=== PATIENT | male | born 1960 | race Two or more races ===

== ENCOUNTER 2018-08-20 08:37 | Day surgery (SDC) | payer OTHER ==
[2018-08-15 12:40] VITALS: BMI 22.7
[2018-08-20 10:17] VITALS: PULSE 71
[2018-08-20 11:55] VITALS: BP 112/74; TEMP 98
--- NOTE | 2018-08-22 16:35 | PATH ---
Surgical Pathology Report Patient Name: DANIELLE QUINTEROS [facility]. Rec. #: [id number] /Age/Gender: 1960 (Age: 57) / M Account: [id number] Location: [facility] Taken: 08/20/2018 Received: 08/20/2018 Reported: 08/22/2018 Physicians: Hernan Lomax M.D. Specimen(s) Received A: RIGHT COLON B: LEFT COLON C: POLYP Clinical History History of polyps Postoperative diagnosis: Polyps Final Diagnosis A. RIGHT COLON, POLYP, BIOPSY: TUBULAR ADENOMA. B. LEFT COLON, POLYP, POLYPECTOMY: TUBULAR ADENOMA. C. SIGMOID COLON, POLYP, POLYPECTOMY: HYPERPLASTIC POLYP. Electronically Signed Cary Perez M.D. Gross Description A. Received in formalin, labeled "polyp right colon" are 3 green, irregular portions of soft tissue ranging from 0.1-0.4 cm. in greatest dimension. The specimens are submitted in toto in one cassette. B. Received in formalin, labeled "polyp left colon" is a green, irregular portion of soft tissue measuring 1.1 cm. in greatest dimension. The specimen is submitted in toto in one cassette. C. Received in formalin, labeled "polyp sigmoid colon" is a green, irregular portion of soft tissue measuring 0.3 cm. in greatest dimension. The specimen is submitted in toto in one cassette. 08/20/201808/20/2018
== END 2018-08-20 11:15 | disposition home or self-care (01) ==
LOC: FASU-ENDO 08:37
PROVIDERS: ATTEND Internal Medicine Gastroenterology
PROC: 0DBN8ZX Excision of Sigmoid Colon, Via Natural or Artificial Opening Endoscopic, Diagnostic (ICD-10-PCS; 2018-08-20)
PROC: 0DBK8ZX Excision of Ascending Colon, Via Natural or Artificial Opening Endoscopic, Diagnostic (ICD-10-PCS; 2018-08-20)
PROC: 0DBM8ZX Excision of Descending Colon, Via Natural or Artificial Opening Endoscopic, Diagnostic (ICD-10-PCS; principal; 2018-08-20 09:30)
DX: Z86.010 Personal history of colon polyps (principal); D12.2 Benign neoplasm of ascending colon; D12.4 Benign neoplasm of descending colon; K63.5 Polyp of colon
CPT/HCPCS: 88305-TC

== ENCOUNTER 2021-04-02 06:08 | Day surgery (SDC) | payer OTHER ==
[2021-03-29 16:15] VITALS: BMI 22.6
[2021-04-02] MEDS ORDERED: EPINEPHrine/PF 1 MG/1 ML (1:1,000) AMPULE ONE (07:06)
[2021-04-02] MEDS ORDERED: BUPIVACAINE HCL/PF 2.5 MG/ML - 30 ML VIAL IJ ONE ×3 (07:06→08:28)
[2021-04-02] MEDS ORDERED: ONDANSETRON 4 MG/2 ML VIAL ONE ×2 (07:28→08:51)
[2021-04-02] MEDS ORDERED: PROPOFOL 20 ML ONE ×3 (07:28)
[2021-04-02] MEDS ORDERED: LIDOCAINE HCL 2% JELLY (5 ML/TUBE) ONE (07:28)
[2021-04-02] MEDS ORDERED: SUCCINYLCHOLINE CHLORIDE 200 MG/10 ML SYRINGE ONE (07:28)
[2021-04-02] MEDS ORDERED: ceFAZolin SODIUM 1 GM VIAL ONE (07:28)
[2021-04-02] MEDS ORDERED: DEXAMETHASONE SOD PHOSPHATE 4 MG/1 ML VIAL ONE (07:28)
[2021-04-02] MEDS ORDERED: LIDOCAINE HCL/PF 2% SDV 5ML VIAL ONE (07:28)
[2021-04-02] MEDS ORDERED: KETOROLAC TROMETHAMINE 30 MG/1 ML VIAL ONE (07:28)
[2021-04-02] MEDS ORDERED: MIDAZOLAM HCL 2 MG/2 ML SINGLE DOSE VIAL ONE (07:29)
[2021-04-02] MEDS ORDERED: EPHEDRINE SULFATE/0.9% NACL/PF 50 MG/10 ML SYRINGE NR ONE (07:47)
[2021-04-02] MEDS ORDERED: ONDANSETRON 4 MG/2 ML VIAL IVPUSH PRN (08:41)
[2021-04-02] MEDS ORDERED: PROMETHAZINE HCL 25 MG/1 ML VIAL IVPB PRN (08:41)
[2021-04-02] MEDS ORDERED: oxyCODONE HCL 5 MG TABLET PO PRN ×2 (08:41)
[2021-04-02 09:01] VITALS: TEMP 98.7
[2021-04-02 14:07] VITALS: BP 127/80; PULSE 62
== END 2021-04-02 11:05 | disposition home or self-care (01) ==
LOC: FASU 06:08
PROVIDERS: ATTEND Orthopaedic Surgery
PROC: 0SBD4ZZ Excision of Left Knee Joint, Percutaneous Endoscopic Approach (ICD-10-PCS; principal; 2021-04-02 07:30)
DX: M23.222 Derangement of posterior horn of medial meniscus due to old tear or injury, left knee (principal)
CPT/HCPCS: 88304-TC; 94760

== ENCOUNTER 2021-05-10 14:34 | Emergency (ER) | payer OTHER ==
[2021-05-11 13:08] LABS: SARS-CoV-2 NAA Not Detected (Not Detected)
== END 2021-05-10 15:43 | disposition home or self-care (01) ==
LOC: JVIRT 14:34
DX: Z20.822 Contact with and (suspected) exposure to COVID-19 (principal)
CPT/HCPCS: C9803; Q3014-GT; U0003; U0005

== ENCOUNTER 2021-05-27 11:31 | Emergency (ER) | payer OTHER ==
[2021-05-28 16:08] LABS: SARS-CoV-2 NAA Not Detected (Not Detected)
== END 2021-05-27 11:52 | disposition home or self-care (01) ==
LOC: JVIRT 11:31
DX: Z20.822 Contact with and (suspected) exposure to COVID-19 (principal)
CPT/HCPCS: C9803; Q3014-GT; U0003; U0005

== ENCOUNTER 2023-01-19 08:36 | Day surgery (SDC) | payer OTHER ==
[2023-01-13 14:58] VITALS: BMI 23.0
[2023-01-19 09:36] VITALS: TEMP 98
[2023-01-19 09:56] VITALS: PULSE 70; RESP 18
[2023-01-19 09:57] VITALS: BP 112/62
== END 2023-01-19 10:33 | disposition home or self-care (01) ==
LOC: FASU-ENDO 08:36
PROVIDERS: ATTEND Internal Medicine Gastroenterology
PROC: 0DBL8ZX Excision of Transverse Colon, Via Natural or Artificial Opening Endoscopic, Diagnostic (ICD-10-PCS; 2023-01-19)
PROC: 0DBN8ZX Excision of Sigmoid Colon, Via Natural or Artificial Opening Endoscopic, Diagnostic (ICD-10-PCS; 2023-01-19)
PROC: 0DBQ8ZX Excision of Anus, Via Natural or Artificial Opening Endoscopic, Diagnostic (ICD-10-PCS; principal; 2023-01-19 09:11)
DX: Z12.11 Encounter for screening for malignant neoplasm of colon (principal); D12.2 Benign neoplasm of ascending colon; D12.3 Benign neoplasm of transverse colon; D12.5 Benign neoplasm of sigmoid colon; Z86.010 Personal history of colon polyps
CPT/HCPCS: 88305-TC